=== PATIENT | female | born 1970 | race Caucasian/White ===

== ENCOUNTER → 2019-05-16 | Outpatient (CLI) | payer OTHER ==
--- NOTE | 2019-05-26 08:34 | Diagnostic Imaging Report ---
#[id number] - [id number] #BILATERAL DIGITAL SCREENING MAMMOGRAM WITH CAD: 05/16/2019 CLINICAL: Routine screening. Comparison is made to exam dated: 09/28/2014 mammogram - [facility]. Current study contains 8 films. The tissue of both breasts is predominantly fatty. Current study was also evaluated with a Computer Aided Detection (CAD) system. Bilateral breast implants are intact. Benign appearing calcifications are noted bilaterally. There are benign nodes in both breasts. No significant masses, calcifications, or other findings are seen in either breast. IMPRESSION: BENIGN There is no mammographic evidence of malignancy. A 1 year screening mammogram is recommended. The patient will be notified by letter of the results. LILIANA MILLER M.D. ct/penrad:05/23/2019 15:56:08 Equipment Maint Tech: Nga LANG)(Samuel), [facility] letter sent: Normal Exam Mammogram BI-RADS: 2 Benign
== END ==
LOC: MAMMO 15:55
PROVIDERS: ATTEND Family Medicine
DX: Z12.31 Encounter for screening mammogram for malignant neoplasm of breast (principal)
CPT/HCPCS: 77067

== ENCOUNTER 2021-02-07 10:18 | Emergency (ER) | payer BC ==
[~2021-02-07] VITALS: Ht 157.5 cm; Wt 81.6 kg
[2021-02-07] MEDS ORDERED: KETOROLAC TROMETHAMINE 30 MG/ML VIAL IV NR (10:30)
[2021-02-07] MEDS ORDERED: METOCLOPRAMIDE HCL 10 MG/2ML VIAL IV NR (10:30)
[2021-02-07] MEDS ORDERED: ACETAMINOPHEN 325 MG TAB PO NR (10:30)
[2021-02-07] MEDS ORDERED: DIPHENHYDRAMINE HCL 25 MG CAP PO NR (10:30)
[2021-02-07] MEDS ORDERED: SODIUM CHLORIDE 0.9% 1000ML 1,000 ML IV SCH (10:30)
[2021-02-07] MEDS ORDERED: DIPHENHYDRAMINE HCL INJ 50 MG/ML VIAL ONE (10:40)
[2021-02-07] MEDS ORDERED: KETOROLAC TROMETHAMINE 60 MG/2 ML VIAL ONE (10:40)
[2021-02-07] MEDS ORDERED: ONDANSETRON HCL INJ 2MG/ML 2ML 2 MG/ML VIAL ONE (10:41)
[2021-02-07] MEDS ORDERED: DIPHENHYDRAMINE HCL INJ 50 MG/ML VIAL IV NR (11:00)
[2021-02-07] MEDS ORDERED: ONDANSETRON HCL INJ 2MG/ML 2ML 2 MG/ML VIAL IV NR (11:00)
== END 2021-02-07 13:37 | disposition home or self-care (01) ==
LOC: ER 10:19
DX: G43.909 Migraine, unspecified, not intractable, without status migrainosus (principal); R11.2 Nausea with vomiting, unspecified
CPT/HCPCS: 70450; 99284; J1200; J1885; J2405; J2765; J7030

== ENCOUNTER → 2025-03-13 | Day surgery (SDC) | payer BC ==
[~2025-03-13] MED LIST: ATIVAN1 MG PO; B12; BUSPIRONE HCL10 MG PO; DEXAMETHASONE SOD PHOS INJ 4 MG/ML SDV ONE; FAMOTIDINE 20 MG/2 ML VIAL IV ONE; FENTANYL CITRATE/PF 100MCG/2 ML INJ ONE; HYOSCYAMINE SULFATE 0.5 MG/ML INJ ONE; KETAMINE HCL INJ 50 MG/ML 10 ML VIAL ONE; LEXAPRO20 MG PO; LIDOCAINE HCL 2% LOCAL INJ 5 ML SDV VIAL INJ ONE; ONDANSETRON HCL INJ 2MG/ML 2ML 2 MG/ML VIAL ONE; PROPOFOL IV EMULSION 50 ML IV ONE; TRAZODONE HCL100 MG PO; VITAMIN D31 ML
[2025-03-13] MEDS: LACTATED RINGER'S 1,000 ML ONE (08:46)
[2025-03-13 11:16] VITALS: TEMP 98.3
[2025-03-13 11:40] VITALS: BP 119/80; PULSE 92; RESP 17; O2SAT 98
== END | disposition home or self-care (01) ==
LOC: OR 08:28
PROVIDERS: ATTEND Internal Medicine Gastroenterology
DX: Z12.11 Encounter for screening for malignant neoplasm of colon (principal); D12.2 Benign neoplasm of ascending colon; D12.8 Benign neoplasm of rectum; K64.8 Other hemorrhoids; F41.9 Anxiety disorder, unspecified; F32.A Depression, unspecified; F17.210 Nicotine dependence, cigarettes, uncomplicated; Z01.810 Encounter for preprocedural cardiovascular examination; Z79.899 Other long term (current) drug therapy
CPT/HCPCS: 45385; 93005; J1100; J1308; J1980; J2003; J2405; J2704; J3010; J7121; 45378